=== PATIENT | female | born 1980 | race Caucasian/White ===

== ENCOUNTER → 2018-05-13 | Outpatient (CLI) | payer OTHER ==
[~2018-05-13] MED LIST: CETI10TA24 PO
== END | disposition home or self-care (01) ==
LOC: STAR 12:51
PROVIDERS: ATTEND Obstetrics & Gynecology
DX: Z01.818 Encounter for other preprocedural examination (principal); D27.0 Benign neoplasm of right ovary
CPT/HCPCS: 36415; 84703